=== PATIENT | male | born 1975 | race Caucasian/White ===

== ENCOUNTER → 2018-10-01 | Outpatient (CLI) | payer BC ==
--- NOTE | 2018-10-01 10:36 | RAD ---
EXAM DESCRIPTION: Fingers,Right CLINICAL HISTORY: 43 years Male, PAIN IN RIGHT FINGERS DIGIT LITTLE FINGER TECHNIQUE: 3 views of the finger were performed. FINDINGS: The visualized bones are well-mineralized. Flexion deformity of the distal interphalangeal joint is noted. No acute fracture. The soft tissues appear grossly unremarkable. IMPRESSION: Flexion deformity of the distal interphalangeal joint of the right fifth digit. No acute fracture. Electronically signed by: Sarita Khanna MD 10/01/2018 10:35 AM [facility]
--- NOTE | 2018-10-01 10:37 | RAD ---
EXAM DESCRIPTION: Hand,Right 3 Views CLINICAL HISTORY: PAIN IN RIGHT HAND COMPARISON: None Available. TECHNIQUE: AP, LATERAL, AND OBLIQUE FINDINGS: The visualized bones appear well mineralized. No acute fracture or dislocation. The soft tissues appear grossly unremarkable. Degenerative changes are identified in the first metacarpophalangeal joint. Fixed flexion deformity of the distal interphalangeal joint of the fifth digit is noted. IMPRESSION: Degenerative changes are identified in the first metacarpophalangeal joint. Fixed flexion deformity of the distal interphalangeal joint of the fifth digit is noted. Electronically signed by: Sarita Khanna MD 10/01/2018 10:36 AM [facility]
== END ==
LOC: RAD 08:36
PROVIDERS: ATTEND Orthopaedic Surgery
DX: M79.641 Pain in right hand (principal); M79.644 Pain in right finger(s)